=== PATIENT | male | born 1950 | race Caucasian/White ===

== ENCOUNTER 2019-03-17 12:13 | Inpatient (IN) | payer OTHER ==
[~2019-03-17] VITALS: Ht 177.8 cm; Wt 91.5 kg
[2019-03-17 12:23] VITALS: BP 118/57
[2019-03-17] MEDS ORDERED: FUROSEMIDE 20 M20 M1 PO (12:36)
[2019-03-17] MEDS ORDERED: TOPROL XL100 MG PO (12:36)
[2019-03-17] MEDS ORDERED: ZITHROMAX250 MG PO (12:38)
[2019-03-17] MEDS ORDERED: NORVASC 2.5 MG2.5 M1 PO (12:39)
[2019-03-17] MEDS ORDERED: ELIQUIS5 MG PO (12:39)
[2019-03-17] MEDS ORDERED: ZESTRIL40 MG PO (12:39)
[2019-03-17] MEDS ORDERED: METFORMIN HCL500 M3 PO (12:40)
[2019-03-17] MEDS ORDERED: ALLOPURINOL 10100 M3 PO (12:40)
[2019-03-17] MEDS ORDERED: LIPITOR80 MG PO (12:41)
[2019-03-17] MEDS ORDERED: FLONASE 0.05%50 MCG NARES (12:42)
[2019-03-17] MEDS ORDERED: FLOMAX0.4 MG PO (12:42)
[2019-03-17] MEDS ORDERED: CHILDREN'S ASPI81 M1 PO (12:43)
[2019-03-17 12:44] LABS: ABSOLUTE BASOPHILS 0.1 thou/uL (0.0-0.2); ABSOLUTE EOSINOPHILS 0.1 thou/uL (0.0-0.7); ABSOLUTE LYMPHOCYTES 1.8 thou/uL (0.8-5.3); ABSOLUTE MONOCYTES 1.1 thou/uL (0.0-1.2); ABSOLUTE NEUTROPHILS 11.2 thou/uL (1.6-8.1); BASOPHILS 0.9 %; EOSINOPHILS 0.8 %; HEMATOCRIT 34.4 % (42.0-52.0); HEMOGLOBIN 11.5 gm/dL (14.0-18.0); LYMPHOCYTES 12.3 %; MCH 30.2 pg (26.0-34.0); MCHC 33.6 g/dL (28.0-37.0); MCV 89.8 fL (80.0-100.0); MONOCYTES 7.9 %; MPV 7.2 fl. (7.2-11.1); NUCLEATED RBCS 0 /100WBC; PLATELET COUNT* 500 thou/uL (150-400); POLYS 78.1 %; RBC 3.83 mil/uL (4.50-6.00); WBC 14.4 thou/uL (4.0-11.0)
[2019-03-17] MEDS ORDERED: OMEPRAZOLE 20 M20 M1 PO (12:44)
[2019-03-17] MEDS ORDERED: NEURONTIN300 MG PO (12:44)
[2019-03-17] MEDS ORDERED: PROAIR HFA8.5 GM INH (12:45)
[2019-03-17 12:53] LABS: CALCIUM 9.3 mg/dL (8.5-10.1); CREATININE 1.2 mg/dL (0.6-1.3); POTASSIUM 3.3 mmol/L (3.5-5.1)
[2019-03-17 12:54] LABS: INR 1.1; PROTIME 11.7 Seconds (9.20-11.50)
[2019-03-17 13:04] LABS: ALBUMIN 2.6 g/dL (3.4-5.0); TOTAL BILIRUBIN 0.4 mg/dL (<0.1-1.0); TOTAL PROTEIN 6.9 g/dL (6.4-8.2)
[2019-03-17 15:33] VITALS: BP 128/74
[2019-03-17 16:30] VITALS: BP 122/49
--- NOTE | 2019-03-17 18:47 | NUR ---
I ASSUMED CARE OF THE PATIENT AN ADMISSION FROM THE ED. PATIENT FELL EARLIER TODAY AND HIT HIS HEAD. ADMISSION IS COMPLETED. BED IS IN THE LOW LOCKED POSITION AND CALL LIGHT IS IN REACH. HOURLY ROUNDING IS COMPLETED AND PTATIENT NEEDS ARE MET. PAIN IS MANAGED WITH REPOSITIONING. HIMS VISITED THE PATIENT. DRIP WAS TITRATED AND RECORDED IN THE EMAR. WILL CONTINUE TO MONITOR. HE IS UP X1 SBA AND VITALS ARE BEING MONITORED. NEW CONSULTS ARE BEING PLACED.
[2019-03-17 20:34] VITALS: BP 130/61
[2019-03-18] VITALS: BP 170/59
[2019-03-18 04:00] VITALS: BP 108/50
[2019-03-18 05:10] LABS: ABSOLUTE BASOPHILS 0.1 thou/uL (0.0-0.2); ABSOLUTE EOSINOPHILS 0.2 thou/uL (0.0-0.7); ABSOLUTE LYMPHOCYTES 1.8 thou/uL (0.8-5.3); ABSOLUTE NEUTROPHILS 6.5 thou/uL (1.6-8.1); BASOPHILS 1.3 %; EOSINOPHILS 2.4 %; HEMATOCRIT 31.8 % (42.0-52.0); HEMOGLOBIN 10.5 gm/dL (14.0-18.0); MCH 29.8 pg (26.0-34.0); MCHC 33.2 g/dL (28.0-37.0); MCV 89.8 fL (80.0-100.0); MPV 7.9 fl. (7.2-11.1); NUCLEATED RBCS 0 /100WBC; PLATELET COUNT* 452 thou/uL (150-400); POLYS 67.3 %; RBC 3.54 mil/uL (4.50-6.00); RDW-CV 13.8 % (10.5-14.5); WBC 9.6 thou/uL (4.0-11.0)
[2019-03-18 05:14] LABS: CALCIUM 9.1 mg/dL (8.5-10.1); CREATININE 1.2 mg/dL (0.6-1.3); POTASSIUM 3.4 mmol/L (3.5-5.1)
--- NOTE | 2019-03-18 05:56 | NUR ---
PT IS ABLE TO COMMUNICATE HIS NEEDS TO STAFF EFFECTIVELY. CURRENT PAIN MEDICATION REGIMEN HAS BEEN ADEQUATE FOR CONTROLLING HIS PAIN UP TO THIS TIME. HE HAS BEEN NPO SINCE MIDNIGHT FOR A CARDIOLOGY CONSULT LATER TODAY. CADIZEM GTT STOPPED DURING THE NIGHT D/T LOW HR; PT ALSO TAKING METOPROLOL PO 100MG BID CURRENTLY.
[2019-03-18 08:10] VITALS: BP 125/61
[2019-03-18 11:56] VITALS: BP 126/54
--- NOTE | 2019-03-18 12:53 | EKG ---
[place] [address] ELECTROCARDIOGRAM REPORT Name: DAREN LEVIN Room: [address] ADM IN .R.#: [id number] Admission: 03/17/19 Attend Phys: Braulio Mosher MD Discharge: Date of : 46 Report #: [id number] THIS REPORT FOR: //name// [facility] ED Test Date: 2019-03-17 Test Time: 12:27:44 Pat Name: DAREN LEVIN Department: Room: [facility] Gender: M Regulatory Assistant: MS : 1950 Requested By: Maddi Hutson Order Number: [id number] MD: Adonis Lee Measurements Intervals [place] Rate: 173 P: [place]: QRS: -42 QRSD: 94 T: 54 QT: 291 QTc: 494 Interpretive Statements Atrial fibrillation with rapid V-rate artfact noted septal q waves noted Low voltage, extremity leads ST depression, probably rate related No previous ECG available for comparison Electronically Signed On 03-18-2019 12:52:45 BORDER MACHINE OPERATOR by Adonis Lee [email or web address] <ELECTRONICALLY SIGNED> By: Adonis Lee MD, [facility] 03/18/19 3634 1227 1227 Adonis Lee MD, [facility] /EPI
--- NOTE | 2019-03-18 14:05 | NUR ---
Pt unavailable d/t testing, CM to attempt to assess later
[2019-03-18 17:01] VITALS: BP 137/59
--- NOTE | 2019-03-18 17:06 | 2DMMODE ---
[place] [address] 2 D/M-MODE ECHOCARDIOGRAM Name: DAREN LEVIN Room: [address] IN M.R.#: [id number] Admission: 03/17/19 Attend Phys: Braulio Mosher, Discharge: Date of : 46 Date of Service: 03/18/19 1706 Report #: [id number] THIS REPORT FOR: //name// APPROVED REPORT Study performed: 03/18/2019 15:02:22 EXAM: Comprehensive 2D, Doppler, and color-flow Echocardiogram Patient Location: Bedside BSA: 2.09 HR: 55 bpm BP: 108/50 mmHg Other Information Study Quality: Fair Indications Atrial Fibrillation 2D Dimensions IVSd: 15.22 (7-11mm) LVOT Diam: 21.69 (18-24mm) LVDd: 45.27 mm PWd: 11.42 (7-11mm) Ascending Ao: 36.57 (22-36mm) LVDs: 36.42 (25-40mm) Aortic Root: 32.12 mm Volumes Left Atrial Volume (Systole) LA ESV Index: 38.00 mL/m2 Aortic Valve AoV Peak Iam.: 1.10 m/s AO Peak Gr.: 4.87 mmHg LVOT Max P.74 mmHg AO Mean Gr.: 2.90 mmHg LVOT Mean P.88 mmHg LVOT Max V: 0.66 m/s AO V2 VTI: 24.50 cm LVOT Mean V: 0.44 m/s AMOR (VTI): 2.66 cm2 LVOT V1 VTI: 17.66 cm Mitral Valve E/A Ratio: 1.04 MV Decel. Time: 217.55 ms MV E Max Iam.: 0.81 m/s MV PHT: 63.09 ms MVA (PHT): 3.49 [place] [address] 2 D/M-MODE ECHOCARDIOGRAM Name: DAREN LEVIN Room: [address] IN .R.#: [id number] Admission: 03/17/19 Attend Phys: Braulio Mosher, Discharge: Date of : 46 Date of Service: 03/18/19 1706 Report #: [id number] TDI E/Lateral E': 7.36 E/Medial E': 10.13 Medial E' Iam.: 0.08 m/s Lateral E' Iam.: 0.11 m/s Pulmonary Valve PV Peak Iam.: 0.88 m/s PV Peak Gr.: 3.10 mmHg Left Ventricle The left ventricle is normal size. There is normal LV segmental wall motion. There is normal left ventricular wall thickness. Left ventricular systolic function is normal. LVEF is 50-55%. Transmitral Doppler flow pattern suggests impaired LV relaxation. Right Ventricle The right ventricle is normal size. The right ventricular systolic function is normal. Atria Left atrium is mildly dilated. The right atrium size is normal. Aortic Valve The aortic valve is normal in structure. No aortic regurgitation is present. There is no aortic valvular stenosis. Mitral Valve The mitral valve is normal in structure. Mild mitral regurgitation. No evidence of mitral valve stenosis. Tricuspid Valve The tricuspid valve is normal in structure. There is no tricuspid valve regurgitation noted. Pulmonic Valve The pulmonary valve is normal in structure. There is no pulmonic valvular regurgitation. Great Vessels The aortic root is normal in size. IVC is normal in size and collapses >50% with inspiration. Pericardium There is [place] [address] 2 D/M-MODE ECHOCARDIOGRAM Name: DAREN LEVIN Room: [address] IN [facility]#: [id number] Admission: 03/17/19 Attend Phys: Braulio Mosher, Discharge: Date of : 46 Date of Service: 03/18/19 1706 Report #: [id number] <Conclusion> Transmitral Doppler flow pattern suggests impaired LV relaxation. Left atrium is mildly dilated. Mild mitral regurgitation. IVC is normal in size and collapses >50% with inspiration. <ELECTRONICALLY SIGNED> By: Lino Yuan MD, FACC 03/18/19 1706 05 05 Lino Yuan MD, FACC /INF
[2019-03-18 20:00] VITALS: BP 143/72
[2019-03-19 00:21] VITALS: BP 91/67
[2019-03-19 04:00] VITALS: BP 148/53
[2019-03-19 05:21] LABS: CALCIUM 8.8 mg/dL (8.5-10.1); CREATININE 1.2 mg/dL (0.6-1.3); HEMATOCRIT 33.4 % (42.0-52.0); HEMOGLOBIN 10.9 gm/dL (14.0-18.0); MCH 29.5 pg (26.0-34.0); MCHC 32.6 g/dL (28.0-37.0); MCV 90.6 fL (80.0-100.0); NUCLEATED RBCS 0 /100WBC; PLATELET COUNT* 407 thou/uL (150-400); POTASSIUM 3.4 mmol/L (3.5-5.1); RBC 3.68 mil/uL (4.50-6.00); RDW-CV 14.2 % (10.5-14.5); WBC 7.7 thou/uL (4.0-11.0)
[2019-03-19 06:48] LABS: ESR (SEDRATE) 112 mm/hr (0-20)
[2019-03-19 07:10] LABS: ABSOLUTE EOSINOPHILS 0.6 thou/uL (0.0-0.7); ABSOLUTE LYMPHOCYTES 1.2 thou/uL (0.8-5.3); ABSOLUTE MONOCYTES 0.8 thou/uL (0.0-1.2); ABSOLUTE NEUTROPHILS 5.1 thou/uL (1.6-8.1); PLATELET ESTIMATE ADEQUATE
[2019-03-19 07:45] VITALS: BP 147/67
[2019-03-19 11:29] VITALS: BP 160/76
--- NOTE | 2019-03-19 12:12 | NUR ---
Pt is A&O. Resides at home with his . Independent. Pt states that he uses a cane for mobility, but also has a walker at home. No hx of HH or SNF. Goal is home at [place], no needs anticipated.
--- NOTE | 2019-03-19 13:46 | EKG ---
[place] [address] ELECTROCARDIOGRAM REPORT Name: DAREN LEVIN Room: [address] ADM IN M.R.#: [id number] Admission: 03/17/19 Attend Phys: Braulio Mosher MD Discharge: Date of : 46 Report #: [id number] THIS REPORT FOR: //name// [facility] Test Date: 2019-03-19 Test Time: 08:30:08 Pat Name: DAREN LEVIN Department: Room: [address] Gender: M Stationary Plant Operators: : 1950 Requested By: Adonis Lee Order Number: [id number] Patricia MD: Lino Yuan Measurements Intervals [place] Rate: 81 P: 42 [place]: 173 QRS: -1 QRSD: 76 T: 35 QT: 419 QTc: 487 Interpretive Statements Sinus rhythm Borderline low voltage, extremity leads Compared to ECG 03/17/2019 12:27:44 Atrial fibrillation no longer present Q waves no longer present ST (T wave) deviation no longer present Electronically Signed On 03-19-2019 13:45:47 PAYABLE PROCESSOR by Lino Yuan [email or web address] <ELECTRONICALLY SIGNED> By: Lino Yuan MD, FACC 03/19/19 1345 Lino Yuan MD, FACC /EPI
--- NOTE | 2019-03-19 13:50 | CON ---
[address] [address] CONSULTATION Name: DAREN LEVIN Room: [address] IN .R.#: [id number] Admission: 03/17/19 Attend Phys: Braulio Mosher MD Discharge: Date of : 46 Report #: [id number] THIS REPORT FOR: //name// CC: Braulio Mosher [facility] unknown DATE OF SERVICE: 03/18/2019 HISTORY OF PRESENT ILLNESS: This is a 68-year-old male patient who was seen by me for an episode of syncope. The patient said he was working on something overhead and just fell. He does not remember much about it. He did hit the back portion of his head. There was not a clear-cut postictal confusion. He did not have any tonic-clonic activity associated with this. The patient does have a history of atrial fibrillation. The patient feels back to his baseline, but he is complaining of neck pain. He drinks at least 5-6 alcoholic drinks a day, mostly beer. He usually goes to [place] for his problem. He had a similar episode 2 years ago. REVIEW OF SYSTEMS: Indicate he had a prior injury to the left knee that was also because of a fall. He has been using a walker since that time. His atrial fibrillation is being addressed by Cardiology. He also has other cardiology and peripheral vascular disease issues. He does complain of some neck pain, which was present before the fall, but has been aggravated since then. He does have a history of hyperlipidemia, syncope. He denies any new ENT problem, but he does have atrial fibrillation. He does have a history of COPD. He denied any GI, , constitutional, dermatological, hematological, psychiatric, throat, allergic symptom associated with present symptomatology. PAST MEDICAL HISTORY: Positive for similar episode about 2 years ago. FAMILY HISTORY: Unremarkable. SOCIAL HISTORY: He does not smoke. He has smoked in the past. PHYSICAL EXAMINATION: Indicate that the patient is alert and responsive. He can follow simple commands. His memory looks poor, but appeared to be his baseline. His speech is intact. His cranial nerve examination 2-12 looks unremarkable. He does appear to have some generalized weakness. He walks with a walker that is because of the knee injury. He said he cannot appreciate the position sense or pinprick in the lower extremities symmetrically. He said he has been diagnosed with neuropathy about a year ago. I am not sure how the diagnosis was done. His tone and strength looks symmetrical. He has no cerebellar sign. Fundus looks unremarkable. Cardiac examination indicates he has a history of atrial fibrillation. Respiratory examination indicates he has COPD. His pulses to me appear palpable. He has no edema, cyanosis or jaundice. He is well-built individual. He has no thyroid mass[place] [address] CONSULTATION Name: DAREN LEVIN Room: [address] IN [facility]#: [id number] Admission: 03/17/19 Attend Phys: Braulio Mosher MD Discharge: Date of : 46 Report #: [id number] bruit. Blood pressure 108/50, pulse is 55, temperature is 98.1. LABORATORY DATA: Indicate a hemoglobin of 10.5, platelet count of 452. IMPRESSION: 1. Syncope. This is most likely secondary to his cardiac etiology. It will be desirable to rule out ORAL AND MAXILLOFACIAL SURGEON causes and we will schedule an MRI and an EEG for that. The patient drinks significant amount of alcohol and he must stop drinking alcohol. He knows that, but I am not sure how willing he is to do that. 2. He does not appear to have good position sense, but the reflexes are present. He is complaining of neck pain, because of that the possibility of cervical myelopathy need to be excluded. We may exclude thoracic myelopathy depending upon the cervical spine MRI results. 3. Neuropathy is most likely secondary to his diabetes and his significant alcohol intake, but I think we will exclude any other contributing factor. He is already getting multivitamin and thiamine and that can continue. His further management and his driving restrictions need to be decided after the above workup is available. I will schedule the workup and ask Dr. Barry to follow up tomorrow. <ELECTRONICALLY SIGNED> By: Ko Bellamy MD 03/19/19 1350 1027 [id number] Bellamy MD /nt
--- NOTE | 2019-03-19 13:50 | EEG ---
[address] [address] EEG STUDY REPORT Name: LEVINDAREN J Room: [address] IN .R.#: [id number] Admission: 03/17/19 Attend Phys: Braulio Mosher MD Discharge: Date of : 46 Report #: [id number] THIS REPORT FOR: //name// CC: Braulio Mosher [facility] unknown DATE OF SERVICE: 03/18/2019 This patient is being evaluated for an episode of syncope. EEG was done by placing the electrode by standard 10-20 system of electrode placement. Both referential and sequential montages were used for recording. Background activity in this patient's EEG is about 11 Hz and 40 microvolts. The patient became drowsy and that is associated with bilateral slowing and vertex sharp waves. Photic stimulation is unremarkable. Throughout the record, no active epileptiform activity was noticed. IMPRESSION: This patient's EEG is unremarkable. No active epileptiform activity was noticed during this record. <ELECTRONICALLY SIGNED> By: Ko Bellamy MD 03/19/19 1350 1051 1100Ko Bellamy MD /nt
--- NOTE | 2019-03-19 13:56 | CON ---
[address] [address] CONSULTATION Name: DAREN LEVIN Room: [address] IN M.R.#: [id number] Admission: 03/17/19 Attend Phys: Braulio Mosher MD Discharge: Date of : 46 Report #: [id number] THIS REPORT FOR: //name// CC: Braulio Mosher [facility] unknown DATE OF SERVICE: 03/18/2019 CARDIOLOGY CONSULTATION HISTORY OF PRESENT ILLNESS: The patient is a 68-year-old white male who I was asked to see in the hospital today after he was noted to be in atrial fibrillation. The patient has an extensive and complicated past medical history. Unfortunately, most of his old records are not available here at [facility]. He states that 2 years ago, he was found to be in atrial fibrillation. He was seen at the [facility] and placed on Eliquis. He has had no bleeding problems since that time. Apparently on 02/27/2019, he tripped and fell at home. He injured his left knee. He went to urgent care at [facility]. He was placed on a boot and told to use a walker. He is scheduled to see an orthopedic surgeon. He is not very active at this time. Yesterday, he was at home in the bathroom when he suddenly felt lightheaded and fell to the ground. He apparently had a brief loss of consciousness. He denies any palpitations, seizure activity. His brought him to the Emergency Room yesterday. He was found to be in atrial fibrillation with rapid ventricular response rate. He was placed on IV Cardizem. He apparently had a CT scan of the head when was admitted to a monitored bed. He had no bleeding. He did not require stitches. The Cardizem was turned off after he developed bradycardia. I was asked to see him for further evaluation and treatment. He has had a previous history of syncope years ago. He denied any recent vomiting, bleeding, diarrhea. He denies being dehydrated. He does get short of breath when he exerts himself. PAST MEDICAL HISTORY: Otherwise, he apparently had a history of leg pain and was found to have PAD[facility] [place] [facility] st[facility] placed in his aorta and both legs. He no longer has leg pain. CURRENT MEDICATIONS: Consists of Lasix, metoprolol, amlodipine, lisinopril, Eliquis, metformin, allopurinol, Lipitor, Flomax, aspirin, Neurontin, and omeprazole. He is on albuterol inhaler. ALLERGIES: He has no known drug allergies. FAMILY HISTORY: Negative for heart disease. 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 He quit smoking years ago. He has a history of alcohol abuse, went to years ago, but still drinks 8-10 [place] [address] CONSULTATION Name: DAREN LEVIN Room: [address] IN [facility]#: [id number] Admission: 03/17/19 Attend Phys: Braulio Mosher MD Discharge: Date of : 46 Report #: [id number] REVIEW OF SYSTEMS: He has had no history of stroke. He has asthma and uses a nebulizer. No history of liver disease, kidney disease, cancer or psychiatric illness, chronic skin condition. No psychiatric illness. PHYSICAL EXAMINATION: GENERAL: Revealed an elderly male, lying in bed, appeared in no acute distress. VITAL SIGNS: Blood pressure is 110/60, his pulse was 60. He is afebrile. HEENT: He was anicteric. Conjunctivae pink. Mucous membranes moist. NECK: Veins nondistended. Bilateral carotid bruits were heard. CHEST: Clear to auscultation. CARDIOVASCULAR: Regular rate and rhythm. No significant murmur. ABDOMEN: Soft. EXTREMITIES: Had no edema. Dorsalis pedis pulse cannot be palpated. SKIN: Cool and dry. NEUROLOGIC: Nonfocal. DIAGNOSTIC DATA: His ECG on admission yesterday showed atrial fibrillation with an increased ventricular response rate, septal Q-waves were noted. He currently is in a sinus rhythm. He has workup in the Emergency Room yesterday. He had a CT scan of the head after he fell that showed no acute abnormality. Portable chest x-ray showed normal heart size, clear lung lorenz. There was a CT scan of the lungs using a PE protocol that showed no pulmonary embolus. No infiltrates, small nodule noted. There was evidence of coronary artery disease with coronary calcification and hyperinflated lung lorenz. LABORATORY DATA: Potassium 3.4, creatinine 1.2. His troponin 0.06. BNP 1144. His alcohol level less than 10. White blood cell count 9.6, hemoglobin 11.5, hematocrit 34.4. IMPRESSION AND RECOMMENDATIONS: 1. Paroxysmal atrial fibrillation. The patient has been on Eliquis for 2 years. At this time, I would consider antiarrhythmic therapy. I would recommend starting the patient on sotalol in an effort to maintain sinus rhythm. I would check thyroid function studies and echocardiogram. 2. Peripheral arterial disease. Previous bilateral stents. No symptoms of claudication at this time. 3. Recent syncope. Possibly related to rapid atrial fibrillation. 4. Chronic obstructive pulmonary disease. The patient uses on bronchodilator. 5. Previous tobacco abuse. 6. Diabetes. 7. Hyperlipidemia. The patient is on a statin drug. 8. Recent fall with left knee discomfort. The patient uses a brace this time. 9. [place] [address] CONSULTATION Name: DAREN LEVIN Room: [address] IN ..#: [id number] Admission: 03/17/19 Attend Phys: Braulio Mosher MD Discharge: Date of : 46 Report #: [id number] 10. Hypertension. The patient is on a beta-danae, calcium danae, NARESH inhibitor. <ELECTRONICALLY SIGNED> By: Adonis Lee MD, FACC 03/19/19 1356 0922 [id number] Lee MD, FACC /nt
[2019-03-19 16:11] LABS: IgA 389 mg/dL (61-437); IgG 868 mg/dL (700-1600); IgM 95 mg/dL (20-172)
[2019-03-19 17:05] VITALS: BP 156/78
[2019-03-19 22:00] VITALS: BP 149/68
[2019-03-20] VITALS (7 sets, daily range): BP systolic 149–167; BP diastolic 61–98
[2019-03-20] MEDS ORDERED: SORINE 80 MG TA80 MG PO (10:14)
[2019-03-20] MEDS ORDERED: AUGMENTIN 875-1 EACH PO (10:43)
--- NOTE | 2019-03-20 11:52 | EKG ---
[place] [address] ELECTROCARDIOGRAM REPORT Name: DAREN LEVIN Room: [address] ADM IN M.R.#: [id number] Admission: 03/17/19 Attend Phys: Braulio Mosher MD Discharge: Date of : 46 Report #: [id number] THIS REPORT FOR: //name// [facility] Test Date: 2019-03-20 Test Time: 09:30:21 Pat Name: DAREN LEVIN Department: Room: [address] Gender: M Internal Medicine Veterinary Technician: JL : 1950 Requested By: Adonis Lee Order Number: [id number] Patricia MD: Scottie Luis Measurements Intervals [place] Rate: 74 P: 30 SC: 189 QRS: -9 QRSD: 77 T: 42 QT: 461 QTc: 512 Interpretive Statements Sinus rhythm Anterior infarct, old possible Mildly Prolonged QT interval Compared to ECG 03/19/2019 08:30:08 Myocardial infarct finding now present Prolonged QT interval now present Electronically Signed On 03-20-2019 11:52:09 TELEPRINTER INSTALLER by Scottie Luis [email or web address] <ELECTRONICALLY SIGNED> By: Scottie Luis MD, [facility] 03/20/19 1152 9 Scottie Luis MD, [facility] /EPI
[2019-03-22 12:09] LABS: ANA INTERPRETATION Negative (Negative)
== END 2019-03-20 13:10 | disposition home or self-care (01) | DRG 871 ==
LOC: M.ERS 12:13 → M.2W 14:24 → M.TBA-ER 14:24 → M.2W 15:42
PROVIDERS: Personal Emergency Response Attendant; Psychiatry & Neurology Neuromuscular Medicine; ADMIT Internal Medicine
DX: A41.9 Sepsis, unspecified organism (principal); J15.6 Pneumonia due to other Gram-negative bacteria; J44.0 Chronic obstructive pulmonary disease with (acute) lower respiratory infection; I48.0 Paroxysmal atrial fibrillation; E78.5 Hyperlipidemia, unspecified; I10 Essential (primary) hypertension; E11.40 Type 2 diabetes mellitus with diabetic neuropathy, unspecified; F10.20 Alcohol dependence, uncomplicated; E11.51 Type 2 diabetes mellitus with diabetic peripheral angiopathy without gangrene; R91.1 Solitary pulmonary nodule; Z95.820 Peripheral vascular angioplasty status with implants and grafts; Z87.81 Personal history of (healed) traumatic fracture; Z79.82 Long term (current) use of aspirin; Z79.899 Other long term (current) drug therapy

== ENCOUNTER 2019-07-27 14:10 | Inpatient (IN) | payer MEDICARE, OTHER ==
[~2019-07-27] VITALS: Ht 175.3 cm; Wt 95.2 kg
[~2019-07-27 14:10] MED LIST: ALLOPURINOL 10100 M3 PO; AUGMENTIN 875-1 EACH PO; CHILDREN'S ASPI81 M1 PO; ELIQUIS5 MG PO; FLOMAX0.4 MG PO; FLONASE 0.05%50 MCG NARES; FUROSEMIDE 20 M20 M1 PO; LIPITOR80 MG PO; METFORMIN HCL500 M3 PO; NEURONTIN300 MG PO; NORVASC 2.5 MG2.5 M1 PO; OMEPRAZOLE 20 M20 M1 PO; PROAIR HFA8.5 GM INH; SORINE 80 MG TA80 MG PO; TOPROL XL100 MG PO; ZESTRIL40 MG PO; ZITHROMAX250 MG PO
[2019-07-27 14:25] VITALS: BP 156/73
[2019-07-27] MEDS ORDERED: LIPITOR10 MG PO (14:40)
--- NOTE | 2019-07-27 16:25 | NUR ---
ANDERSON WORKMAN ) NOTIFIED UPON PT RETURN FROM CT. PT CONNECTED TO MONITOR
[2019-07-27 17:20] LABS: ABSOLUTE BASOPHILS 0.1 thou/uL (0.0-0.2); ABSOLUTE EOSINOPHILS 0.2 thou/uL (0.0-0.7); ABSOLUTE LYMPHOCYTES 1.5 thou/uL (0.8-5.3); ABSOLUTE MONOCYTES 0.8 thou/uL (0.0-1.2); ABSOLUTE NEUTROPHILS 7.7 thou/uL (1.6-8.1); BASOPHILS 0.7 %; EOSINOPHILS 1.8 %; HEMATOCRIT 34.2 % (42.0-52.0); HEMOGLOBIN 11.6 gm/dL (14.0-18.0); LYMPHOCYTES 14.5 %; MCH 30.8 pg (26.0-34.0); MCHC 33.9 g/dL (28.0-37.0); MCV 90.8 fL (80.0-100.0); MONOCYTES 7.5 %; MPV 7.6 fl. (7.2-11.1); NUCLEATED RBCS 0 /100WBC; PLATELET COUNT* 272 thou/uL (150-400); POLYS 75.5 %; RBC 3.77 mil/uL (4.50-6.00); RDW-CV 16.3 % (10.5-14.5); WBC 10.2 thou/uL (4.0-11.0)
[2019-07-27 17:26] LABS: URINE BILIRUBIN NEGATIVE (Negative); URINE BLOOD TRACE (Negative); URINE CLARITY CLEAR; URINE COLOR YELLOW; URINE GLUCOSE-RANDOM NEGATIVE (Negative); URINE KETONES NEGATIVE (Negative); URINE LEUKOCYTES-REFLEX NEGATIVE (Negative); URINE NITRITE-REFLEX NEGATIVE (Negative); URINE PROTEIN 1+ (Negative); URINE UROBILINOGEN 0.2 E.U./dl (0.2-1.0)
[2019-07-27 17:28] LABS: CALCIUM 9.1 mg/dL (8.5-10.1); POTASSIUM 4.6 mmol/L (3.5-5.1)
[2019-07-27 17:29] LABS: APTT 33.8 Seconds (25.0-31.3); INR 1.1; PROTIME 10.9 Seconds (9.20-11.50)
[2019-07-27 17:39] LABS: ALBUMIN 3.2 g/dL (3.4-5.0); TOTAL BILIRUBIN 0.4 mg/dL (<0.1-1.0); TOTAL PROTEIN 7.3 g/dL (6.4-8.2)
[2019-07-27 22:00] VITALS: BP 145/68
[2019-07-27 22:30] VITALS: BP 161/68
[2019-07-28 04:00] VITALS: BP 107/67
[2019-07-28 04:21] LABS: ABSOLUTE BASOPHILS 0.1 thou/uL (0.0-0.2); ABSOLUTE EOSINOPHILS 0.3 thou/uL (0.0-0.7); ABSOLUTE LYMPHOCYTES 1.4 thou/uL (0.8-5.3); ABSOLUTE MONOCYTES 0.9 thou/uL (0.0-1.2); ABSOLUTE NEUTROPHILS 3.9 thou/uL (1.6-8.1); EOSINOPHILS 4.2 %; HEMOGLOBIN 9.9 gm/dL (14.0-18.0); LYMPHOCYTES 21.3 %; MCH 31.1 pg (26.0-34.0); MCHC 34.2 g/dL (28.0-37.0); MCV 90.8 fL (80.0-100.0); MONOCYTES 13.1 %; MPV 6.9 fl. (7.2-11.1); NUCLEATED RBCS 0 /100WBC; PLATELET COUNT* 217 thou/uL (150-400); POLYS 60.4 %; RBC 3.19 mil/uL (4.50-6.00); WBC 6.5 thou/uL (4.0-11.0)
--- NOTE | 2019-07-28 04:30 | NUR ---
RECEIVED PT FROM ED PER CART. PT IS AWAKE AND ORIENTED X4. PT IS TRACING SR ON THE PILOT CAN ROUTER. ADMISSION ASSESSMENT DONE AND CHARTED. LEFT LOWER EXTREMEITY IMMOBILIZER MAINTAINED. ALCOHOL WITHDRAWAL ASSESSMENT DONE CHARTED. PT IS ORIENTED TO ROOM SET UP AND ON THE USE OF CALL LIGHT. HIGH FALL PRECAUTIONS IN PLACE. CALL LIGHT WITHIN REACH. HOURLY ROUNDING DONE FOR PT SAFETY.
[2019-07-28 04:34] LABS: CALCIUM 7.9 mg/dL (8.5-10.1)
[2019-07-28 04:36] LABS: CALCIUM 8.1 mg/dL (8.5-10.1); MAGNESIUM 1.6 mg/dL (1.8-2.4); PHOSPHORUS* 4.1 mg/dL (2.5-4.9)
[2019-07-28 06:31] LABS: AMP/METHAMP Negative (Negative); BARBITURATES Negative (Negative); BENZODIAZEPINES Negative (Negative); COCAINE Negative (Negative); METHADONE Negative (Negative); OPIATES POSITIVE (Negative); PCP Negative (Negative); THC Negative (Negative)
[2019-07-28 08:00] VITALS: BP 139/60
--- NOTE | 2019-07-28 08:31 | EKG ---
[place] [address] ELECTROCARDIOGRAM REPORT Name: DAREN LEVIN Room: [address] ADM IN ..#: [id number] Admission: 07/27/19 Attend Phys: Braulio Mosher, Discharge: Date of : 46 Date of Service: 07/27/19 1705 Report #: [id number] THIS REPORT FOR: //name// [facility] ED Test Date: 2019-07-27 Test Time: 17:05:24 Pat Name: DAREN LEVIN Department: Room: [facility] Gender: M Foundation Engineer: : 1950 Requested By: Gio Murcia Order Number: [id number] MD: Lino Yuan Measurements Intervals [place] Rate: 89 P: 3 [place]: 176 QRS: -17 QRSD: 73 T: 51 QT: 365 QTc: 445 Interpretive Statements Sinus rhythm Borderline left axis deviation Low voltage, precordial leads Baseline wander in lead(s) I,II,aVR Compared to ECG 03/20/2019 09:30:21 Low QRS voltage now present Myocardial infarct finding no longer present Prolonged QT interval no longer present Electronically Signed On 07-28-2019 8:29:31 CDT by Lino Yuan [email or web address] <ELECTRONICALLY SIGNED> By: Lino Yuan MD, [facility] 07/28/19 0829 04 170 Lino Yuan MD, [facility] /EPI
[2019-07-28 12:00] VITALS: BP 123/59
--- NOTE | 2019-07-28 15:36 | NUR ---
Pt is A&O. Resides at home with his . Normally independent. Pt has a cane and walker that he can use for mobility. Hx of ETOH, resulting in tibial plataeu fx. Pt wants to return home at [place], no hx of HH or SNF. Therapies to eval. Following
[2019-07-28 16:00] VITALS: BP 133/70
--- NOTE | 2019-07-28 18:38 | NUR ---
ASSUMED CARE OF PT APPROX 0730. REASSESMENT COMPLETED CHARTED. MEDICATIONS GIVEN CHARTED. PT NOTED TO HAVE SLIGHT TREMORS. CARE DISCUSSED WITH THE PHYSICIAN. THERAPY IN TO SEE THE PT THIS AM, THERAPY DID NOT BELIEVE THE PT WAS STRONG ENOUGH TO GO HOME TODAY. PHYSICIAN NOTIFIED. PT HAS BEEN SLEEPING FOR MOST OF THE SHIFT. SAFETY PRECAUTIONS UTILIZED, HOURLY ROUNDING. BED IN LOW POSITION AND CALL LIGHT WITHIN REACH.
[2019-07-28 20:00] VITALS: BP 122/71
[2019-07-29] VITALS (7 sets, daily range): BP systolic 137–178; BP diastolic 61–83
[2019-07-29 04:56] LABS: CALCIUM 8.4 mg/dL (8.5-10.1); CREATININE 0.9 mg/dL (0.6-1.3); MAGNESIUM 1.5 mg/dL (1.8-2.4); PHOSPHORUS* 4.6 mg/dL (2.5-4.9)
--- NOTE | 2019-07-29 06:48 | NUR ---
ASSUMED PT CARE AT APPROX 1930. PT IS AWAKE AND ORIENTED X4-FORGETFUL. ELECTRONIC DEVICE REPAIRER IN PLACE TRACING SR. PT SLEPT MOST OF THE NIGHT. ALCOHOL WITHDRAWAL ASSESSMENT DONE AND CHARTED. CALL LIGHT WITHIN REACH. LEFT LEG BRACE KEPT IN PLACE. HOURLY ROUNDING DONE FOR PT SAFETY. HIGH FALL PRECAUTIONS IN PLACE. CALL LIGHT WITHIN REACH.
--- NOTE | 2019-07-29 09:19 | NUR ---
ASSUMED CARE OF PT THIS AM AROUND 0715- RETINA SUBSPECIALIST IN PLACE ORDERED, TRACING SR- UPON ASSESSMENT PT NOTED TO BE RESTING IN BED, WATCHING TV- PT A&O X4- MILD ANXIUOS THIS AM WITH NOTED TREMORS IN UE- CIWA NOTED AT 4- CONT OF B/B- SBA WITH TRANSFERS FOR SAFETY- LCTA/DIMINISHED IN BASES- VSS, O2 SAT 97%ON RA- ABD FORM/ROUND/NON-TENDER, BS X4 QUADS- LAST BM REPORTED 07/28/19- IV NOTED TO LEFT FA INTACT, IVF INFUSSING PRESCRIBED- GOOD PO INTAKE NOTED THIS AM WITH BREAKFAST, BS MONITORED ORDERED- LLE NOTED WITH 2+ PEDAL EDEMA, PULSES +1, LEG BRACE IN WITH WITH NARESH WRAP INDICATED- PT DENIES ANY C/O PAIN/DISCOMFORT AT THIS TIME- CALL LIGHT AND PERSONAL BELONGINGS WITH IN REACH- ALL NEEDS MET AT THIS TIME-WCTM
[2019-07-29] MEDS ORDERED: NORCO 5-325 TA1 EAC1 PO (12:04)
[2019-07-30] VITALS (7 sets, daily range): BP systolic 127–157; BP diastolic 60–92
--- NOTE | 2019-07-30 06:19 | NUR ---
PT SLEPT OFF AND ON THIS SHIFT. VSS ON RA. MEDS GIVEN PER EMAR. NWB TO LLE. WBAT TO RLE. PT DENIES PAIN THIS SHIFT. PT VOIDS VIA URINALS. NO BM NOTED THIS SHIFT. FALL PRECAUTION IN PLACE. CALL LIGHT WITHIN REACH. HOURLY ROUNDINGS MADE. WILL CONTINUE TO MONITOR.
--- NOTE | 2019-07-30 08:26 | NUR ---
CM received call from Pt's yesterday, have been unable to reach, CM to keep attempting to make contact. Pt will need either skilled or acute rehab [place] per therapies.
--- NOTE | 2019-07-30 13:03 | NUR ---
CM spoke with via phone. concerned that Pt will not agree to go to acute rehab, asking if Pt can have non alcoholic beer on rehab, he may agree to going if he can. MARLON explained that as of now, Pt is dependent with cares and will need some form of rehab prior to returning home. Per , if PT clears Pt, he can return home with HH, in agreement with either plan as long as Pt agrees. Following.
[2019-07-31 04:00] VITALS: BP 146/57
--- NOTE | 2019-07-31 06:04 | NUR ---
PT SLEPT OFF AND ON THIS SHIFT. PAIN MED GIVEN X1 THIS SHIFT. PT VOIDS VIA URINALS. RFA IV WITH NS @ 100. FALL PRECAUTION IN PLACE. CALL LIGHT WITHIN REACH. WILL CONTINUE TO MONITOR.
[2019-07-31 07:43] VITALS: BP 176/73
[2019-07-31 12:00] VITALS: BP 141/65
[2019-07-31 16:00] VITALS: BP 121/58
--- NOTE | 2019-07-31 19:02 | NUR ---
RECEIVED REPORT FROM BENJAMIN ANDERSON. ASSUMED CARE OF PT AROUND 0730. PT A&O X4. CLIMATOLOGIST IN PLACE TRACING CHARTED. AM ASSESSMENT AND VITALS COMPLETED CHARTED. MEDS PER EMAR. PT ABLE TO GET UP TO BEDSIDE CHAIR THIS SHIFT, NWB STATUS TO LLE MAINTAINED. PT VOIDING PER URINAL, URINE YELLOW. PT REPORTED PAIN TO LLE AFTER GETTING UP TO CHAIR AND RECEIVED PO PAIN MEDICATION WITH RELIEF. PLAN IS FOR PT TO DC TO REHAB FRIDAY PROVIDED A BED IS AVALIABLE. PT CURRENTLY RESTING IN BED. CALL LIGHT IS WTHIN REACH. HOURLY ROUNDING PERFORMED. FALL PRECAUTIONS IN PLACE.
[2019-07-31 20:00] VITALS: BP 141/61
[2019-08-01 00:04] VITALS: BP 155/64
--- NOTE | 2019-08-01 03:20 | NUR ---
PT ALERT ORIENTED. IN BED WITH LEFT LEG HINGED BRACE. CO PAIN AROUND MN SHOOTING, SHARP IN LEFT ANKLE AND FOOT. HYDROCODONE GIVEN. PT RESTING QUIETLY. TELEMETRY SHOWS SR. JAYDEN
[2019-08-01 04:30] VITALS: BP 155/63
[2019-08-01 08:00] VITALS: BP 167/72
[2019-08-01 14:00] VITALS: BP 115/64
[2019-08-01 16:00] VITALS: BP 147/56
--- NOTE | 2019-08-01 17:49 | NUR ---
PATINET RESTING IN BED. SR ON MONITOR. NWB TO LEFT LEG. EXPECTED DISCHARGE TO REHAB TOMORROW. HOURLY ROUNDING COMPELTED FOR PATINET SAFETY.
[2019-08-01 20:00] VITALS: BP 147/69
[2019-08-02] VITALS: BP 154/64
[2019-08-02 04:00] VITALS: BP 154/71
--- NOTE | 2019-08-02 04:49 | NUR ---
ASSUMED CARE OF PT AFTER REPORT AT 1930. PT A&OX4. VSS. PHYSICAL ASSESSMENT COMPLETED AND CHARTED. PT ON RA. PT TRACING SR ON TELE. PT UP WITH 1 ASSIST. PT COMPLAINED OF LEFT LEG/KNEE PAIN-MED GIVEN PER MAY. NWB TO LEFT LEG REMINDED. CALL LIGHT WITHIN REACH.
[2019-08-02 08:49] VITALS: BP 157/51
[2019-08-02 12:11] VITALS: BP 142/59
--- NOTE | 2019-08-02 15:11 | NUR ---
Rehab consult completed today, Pt is a good rehab candidate. Waiting to hear back from rehab department manager on bed availability for dc today. Following.
[2019-08-02 16:52] VITALS: BP 161/67
[2019-08-02 20:53] VITALS: BP 152/55
[2019-08-03] VITALS (7 sets, daily range): BP systolic 135–178; BP diastolic 61–83
--- NOTE | 2019-08-03 04:18 | NUR ---
ASSUMED CARE OF PT 08/02/19 AT APPROX 1930. PT A&OX4, ON ROOM AIR, VSS, NWB LT LEG MAINTAINED. PT SR ON MONITOR. ASSESSMENTS AND HOURLY ROUNDINGS COMPLETED. WILL CONTINUE TO MONITOR.
--- NOTE | 2019-08-03 12:55 | NUR ---
ASSUMED PT CARE REPORT RECEIVED FROM NURSE. PT IS AOX4. ON RA, TRACING SINUS RYTHM ON BAR BACK. ON RA. DENIES PAIN. PT RECEIVED SHOWER THIS AM. LEFT KNEE BRACE IN PLACE. NON WEIGHT BEARING OF LEFT LOWER EXT. ACCUCHECK. DISCHARGE ORDERED. CALL LIGHT AT REACH. WILL CONTINUE TO MONITOR PT
--- NOTE | 2019-08-03 18:39 | NUR ---
PT WAS SUPPOSED TO GET DISCHARGED TO REHAB TODAY BUT NO BED AVAILABLE. STOP TELEMETRY ORDER IN. HEART MONITOR RETRIEVED. IV REMOVED . "OK TO REMOVE IV ORDER " IN PLACE
--- NOTE | 2019-08-03 19:22 | NUR ---
BLACK LEFT GREAT TOE ULCER NOTICED. WOUND CARE CONSULTED. PICTURE IN CHART
[2019-08-04] VITALS: BP 137/60
--- NOTE | 2019-08-04 07:26 | NUR ---
PT IS ABLE TO COMMUNICATE HIS NEEDS TO STAFF EFFECTIVELY. CURRENT PAIN MEDICATION REGIMEN HAS BEEN ADEQUATE FOR CONTROLLING HIS PAIN UP TO THIS TIME. PT IS TO BE NON-WEIGHT BEARING ON HIS LEFT LEG DUE TO THE TIBIAL PLATEAU FX ON THAT SIDE; BRACE ON FOR GAIT/TRANSFERS, MAY BE REMOVED WHILE STAYING IN BED. POSSIBLE DISCHARGE AND READMIT TO [facility] LATER TODAY.
[2019-08-04 08:00] VITALS: BP 136/72
--- NOTE | 2019-08-04 14:00 | NUR ---
ASSUMED PT CARE REPORT RECEIVED FROM NURSE. PT IS NONWEIGHT BEARING OF LEFT LOWER EXTREMITIY. VSS. THIS NURSE CONTACTED ASSISTANT KITCHEN MANAGER THIS MORNING TO INQUIRE ABOUT THE AVAILABILITY OF BED FOR PATIENT. PER REHAB MANGER, THERE WILL BE A DISCHARGE LATER IN THE DAY AND THE PATIENT SHOULD BE ABLE TO GET ADMITTED BY THE END OF THE DAY. PT HAD A BOWEL MOVEMENT. COMPLAINS OF PAIN. MEDS GIVEN. OUT OF BED, WALKED WITH PHYSICAL THERAPY. CALL LIGHT AT REACH. NO COMPLAINT. WILL CONTINUE TO MONITOR
--- NOTE | 2019-08-04 15:45 | NUR ---
PER PHYSICAL THERAPIST THIS AM, PATIENT WILL NEED REHAB BECAUSE PATIENT IS WEAK ON HIS LEGS AND NEED MORE STRENGTH TRAINING
[2019-08-04 16:00] VITALS: BP 127/57
--- NOTE | 2019-08-04 18:38 | NUR ---
REPORT GIVEN TO REHAB NURSE . PT IS TO GO TO ROOM 318. PT TRANSFERRED TO REHAB AT 1830 VIA WHEELCHAIR. CORNELIO BROUGHT ALONG
== END 2019-08-04 18:57 | DRG 543 ==
LOC: M.ERS 14:10 → M.2W 17:25 → M.TBA-ER 17:25 → M.2W 22:02
PROVIDERS: Family Medicine; Physician Assistant; ADMIT Internal Medicine
PROC: 2W3MX3Z Immobilization of Left Lower Extremity using Brace (ICD-10-PCS; principal; 2019-07-28)
DX: M80.062A Age-related osteoporosis with current pathological fracture, left lower leg, initial encounter for fracture (principal); E87.1 Hypo-osmolality and hyponatremia; I50.32 Chronic diastolic (congestive) heart failure; I43 Cardiomyopathy in diseases classified elsewhere; S00.03XA Contusion of scalp, initial encounter; M25.561 Pain in right knee; F10.20 Alcohol dependence, uncomplicated; Y90.9 Presence of alcohol in blood, level not specified; G62.9 Polyneuropathy, unspecified; X58.XXXA Exposure to other specified factors, initial encounter; E78.5 Hyperlipidemia, unspecified; I48.91 Unspecified atrial fibrillation; J44.9 Chronic obstructive pulmonary disease, unspecified; Y93.89 Activity, other specified; Y92.89 Other specified places as the place of occurrence of the external cause; Y99.8 Other external cause status; Z79.01 Long term (current) use of anticoagulants; Z79.82 Long term (current) use of aspirin; Z79.899 Other long term (current) drug therapy

== ENCOUNTER 2019-08-03 09:57 | Inpatient (IN) | payer MEDICARE, OTHER ==
[~2019-08-03] VITALS: Ht 175.3 cm; Wt 92.1 kg
[~2019-08-03 09:57] MED LIST changes: +LIPITOR10 MG PO; +NORCO 5-325 TA1 EAC1 PO
[2019-08-04 18:56] VITALS: BP 137/59
--- NOTE | 2019-08-05 01:32 | NUR ---
PATIENT CAME TO FLOOR PER W/C @ 1844.ADMITTED A 68 YEAR OLD MALE DUE TO FX LEFT TIBIAL PLATEAU.NWB LEFT LE.BRACE LEFT LE OFF @ 1944.ASSUMED CARE @ 1944.AWAKE IN BED W/ HOB UP WATCHING TV.WANTS SIDERAILS X2 UP ONLY.BED ALARM PUT ON @ 1924.PER PATIENT-BRACE CAN BE OFF WHILE IN BED PER W/IN REACH.WAnts scd's on & APPLIED BY LINE COOK @ 223.SEE PAIN MANAGEMENT @ 2256.WANTS ALL LIGHTS OFF & DOOR CLOSED @ NIGHT.ON HOURLY ROUNDS.LINE COOK DOING ODD HOUR ROUNDS.
--- NOTE | 2019-08-05 05:07 | NUR ---
SLEPT LATE @ 0000-08/04- & SLEEPING GOOD ALL NIGHT.USED URINAL X3.NURSE JUST EMPTIES URINAL @ NIGHT.TOOK ALL VANILLA ICE CREAM HS SNACK.
[2019-08-05 08:00] VITALS: BP 146/58
[2019-08-05 10:45] LABS: HEMATOCRIT 30.6 % (42.0-52.0); HEMOGLOBIN 10.3 gm/dL (14.0-18.0); MCH 30.8 pg (26.0-34.0); MCHC 33.6 g/dL (28.0-37.0); MCV 91.8 fL (80.0-100.0); MPV 7.7 fl. (7.2-11.1); RBC 3.33 mil/uL (4.50-6.00); RDW-CV 15.5 % (10.5-14.5); WBC 6.1 thou/uL (4.0-11.0)
[2019-08-05 10:57] LABS: CALCIUM 8.9 mg/dL (8.5-10.1); CREATININE 1.2 mg/dL (0.6-1.3); POTASSIUM 3.5 mmol/L (3.5-5.1)
--- NOTE | 2019-08-05 16:50 | NUR ---
WOUND NURSE: PATIENT FITTED FOR TUBIGRIPS BLE AFTER MEASURING CALF'S AT 39 AND 41 CM RESPECTIVELY. PROVIED WITH SINGLE LAYER SIZE E TUBIGRIPS TO BLE TOES TO KNEE.
--- NOTE | 2019-08-05 17:57 | NUR ---
ASSESSMENT COMPLETED DOCUMENTED THIS MORNING. PATIENT QUITE IRRITABLE AND STATING HE IS GOING TO LEAVE HERE TODAY EVEN IF IT IS AMA. DR. PETERS IN AND SPOKE WITH PATIENT, PATIENT AGREED TO PARTICIPATE WITH THERAPY AND SERVICES ON REHAB FOR A FEW DAYS. ORDERS FOR NONALCOHOLIC BEER AT THE BEDSIDE REC'D AND PATIENT HAS THEM ON ICE NEXT TO HIS RECLINER. ALBUTEROL TREATMENTS ORDERED TID AND PRN...PATIENT STATED HE HAD THEM ON THE OTHER UNIT AND NEEDED THEM. HYDROCODONE 5/325 GIVEN AT 0830 FOR C/O LLE PAIN WITH RELIEF OBTAINED. PATIENT DID PARTICIPATE FULLY WITH THERAPY THE DAY PROGRESSED.
[2019-08-05 19:40] VITALS: BP 143/62
--- NOTE | 2019-08-06 05:39 | NUR ---
ASSUMED CARES AT 1920. ALERT AND ORIENTED. PLEASANT. DENIED ANY NEED FOR PAIN MEDS. NWB LLE. HINGED BRACE OFF WHEN IN BED. TUBIGRIPS TO BLE 2-3+ EDEMA. MIN ASSIST WITH GAIT BELT AND WALKER. STAND AND PIVOT. USED URINAL. SLEPT WELL. NO ISSUES OVERNIGHT. CALL LIGHT IN REACH AND BED ALARM ON.
[2019-08-06 09:08] VITALS: BP 145/68
--- NOTE | 2019-08-06 16:30 | NUR ---
Initial inpt rehab assessment: Pt lives at home with . Pt has a cane, scooter, walker. SW to provide resources/referrals for stair lift as this is not covered by insurances. SW to continue to follow to assist with safe dc planning.
--- NOTE | 2019-08-06 17:48 | NUR ---
ALERT AND ORIENTED X4. UP WITH 1 ASSIST, GAIT BELT AND WALKER. REMAINS NONWEIGHTBEARING TO LEFT LOWER LEG. DENIED NEED FOR PAIN MEDICATION TODAY. PLEASANT AND COOPERATIVE WITH STAFF. HAS HINGE BRACE ON LEFT LEG ALL DAY TODAY. USES CALL LIGHT WITHIN REACH. FALL PRECAUTIONS IN PLACE. BED AND CHAIR ALARM USED.
[2019-08-06 19:59] VITALS: BP 153/60
--- NOTE | 2019-08-07 01:47 | NUR ---
ASSUMED CARE @ 1934-08/05-FRIDAY.SITS IN RECLINER W/ LEFT LE UP & BRACE IN PLACE LEFT LE.TUBIGRIPS IN PLACE LE'S.ON HIS COMPUTER.MIN ASSIST TO BED @ 2114.SIDERAILS X2 UP.WANTS DOOR HALF CLOSED & ALL LIGHTS OFF.BED ALARM PUT ON @ 2114.NWB LEFT LE OBSERVED DURING TRANSFERS.ON HOURLY ROUNDS.CREDIT OPERATIONS PROCESSOR DOING ODD HOUR ROUNDS.
--- NOTE | 2019-08-07 05:41 | NUR ---
SLEEPING SINCE 0000 & SLEPT GOOD ALL NIGHT.USED URINAL X3.NURSE EMPTIES URINAL @ NIGHT.REFUSED HS SNACK.
[2019-08-07 08:31] VITALS: BP 130/67
--- NOTE | 2019-08-07 18:33 | NUR ---
ASSESSMENT COMPLETED DOCUMENTED THIS MORNING. PATIENT HAS BEEN UP AND PARTICIPATING IN THERAPY TODAY, PROGRESSING AND TOLERATING WELL. HAS NOT REQUESTED ANYTHING FOR PAIN DURING SHIFT.
[2019-08-07 19:50] VITALS: BP 142/63
--- NOTE | 2019-08-08 01:23 | NUR ---
ASSUMED CARE @ 1916-08/06-SAT.SITS IN RECLINER W/ LE'S UP.BRACE IN PLACE LEFT LE.TUBIGRIPS IN PLACE LE'S.NWB LEFT OBSERVED.PATIENT TOOK OFF BRACE LEFT LE WHEN IN BED.EACH LE UP ON A PILLOW.WANTS ALL LIGHTS OFF & DOOR CLOSED @ NIGHT. URINAL W/IN REACH.ON HOURLY ROUNDS.SHIPPING AND RECEIVING SPECIALIST DOING ODD HOUR ROUNDS.
--- NOTE | 2019-08-08 05:06 | NUR ---
SLEEPING @ 2310 & SLEPT GOOD ALL NIGHT.USED URINAL X4.NURSE EMPTIES URINAL @ NIGHT.REFUSED HS SNACK.
--- NOTE | 2019-08-08 18:03 | NUR ---
ASSESSMENT COMPLETED DOCUMENTED THIS MORNING. NO ISSUES OR CHANGES IN CONDITION NOTED TODAY. HAS BEEN UP IN THE RECLINER AT THE BEDSIDE AND TOLERATING WELL.
[2019-08-08 19:35] VITALS: BP 125/49
--- NOTE | 2019-08-09 01:22 | NUR ---
ASSUMED CARE @ -SUN.SITTING IN RECLINER W/ LE'S UP.WATCHING TV & ON COMPUTER @ SAME TIME.BRACE IN PLACE LEFT LE.TUBIGRIPS INTACT LE'S.BED ALARM PUT ON @ 2119.URINAL W/IN REACH.BRACE OFF @ NIGHT.WANTS ONLY SIDERAILS X2 UP,ALL LIGHTS OFF & DOOR PARTIALLY CLOSED @ NIGHT.ON HOURLY ROUNDS.INJURY/SAFETY HAZARD ASSESSMENT DOING ODD HOUR ROUNDS.
--- NOTE | 2019-08-09 05:15 | NUR ---
SLEEPING SINCE 2324 & SLEPT GOOD ALL NIGHT.USED URINAL X3.NURSE EMPTIES URINAL @ NIGHT.TOOK ALL RAINBOW SHERBET HS SNACK.
[2019-08-09 08:28] VITALS: BP 143/67
--- NOTE | 2019-08-09 18:22 | NUR ---
ALERT AND ORIENTED X4. UP WITH 1 ASSIST, GAIT BELT AND WALKER. REMAINS NONWEIGHTBEARING TO LEFT LOWER EXTREMITY. HOPS WHEN USING WALKER. BRACE ON LEFT LEG WHILE UP. DENIES NEED FOR PAIN MEDICATION. USES CALL LIGHT WHEN NEEDING ASSIST. FALL PRECAUTIONS IN PLACE, BED ALARM AND CHAIR ALARM USED.
[2019-08-09 19:15] VITALS: BP 112/59
[2019-08-09 20:30] VITALS: BP 150/64
--- NOTE | 2019-08-10 04:48 | NUR ---
ASSUMED CARES AT 1920. ALERT AND ORIENTED, PLEASANT. DENIED ANY PAIN. NWB LLE. HINGED BRACE OFF FOR THE NIGHT. TUBIGRIPS BLE. USED URINAL AND NURSING EMPTIED. SLEPT OFF AND ON. CALL LIGHT IN REACH AND BED ALARM ON.
[2019-08-10 07:58] VITALS: BP 117/63
--- NOTE | 2019-08-10 11:58 | NUR ---
SW called pt in preparation for team conference tomorrow and pt did not answer so SW left a detailed message and requested call back with any questions or comments. SW to continue to follow to assist with safe dc planning.
--- NOTE | 2019-08-10 16:35 | NUR ---
ALERT AND ORIENTED X4. UP WITH 1 ASSIST, GAIT BELT AND WALKER. DENIES NEED FOR PAIN MEDICATION. WEARS HINGED BRACE WHEN UP ON LEFT LEG. REMAINS NONWEIGHTBEARING TO LEFT LOWER LEG. HOPS WITH TRANSFERS. TUBIGRIPS HELPFUL WITH LOWER EXTREMITY EDEMA. USES CALLLIGHT WHEN NEEDING ASSIST. FALL PRECAUTIONS IN PLACE, BED ALARM AND CHAIR ALARM USED.
[2019-08-10 19:30] VITALS: BP 134/52
--- NOTE | 2019-08-11 06:53 | NUR ---
ASSUMED CARES AT 1920. ALERT AND ORIENTED. PLEASANT. DENIED ANY PAIN. NWBLLE WITH HINGED BRACE WHEN UP. MIN ASSIST WITH GAIT BELT AND WALKER. BLE TUBIGRIPS. USED URINAL. SLEPT WELL.
[2019-08-11 08:52] VITALS: BP 109/74
--- NOTE | 2019-08-11 15:33 | NUR ---
WILBER called pt Karly to review team conference summary and plan for pt to continue therapies with dc on Friday. Pt and pt requested team consider pt possibly ready to dc home on Friday. Pt agreed to family training at 1 pm on Friday. WILBER discussed with Dr Yu who is okay with plan for dc home Friday. WILBER to continue to follow to assist with safe dc planning.
--- NOTE | 2019-08-11 16:42 | NUR ---
ALERT AND ORIENTED X4. UP WITH 1 ASSIST GAIT BELT AND WALKER. USES HINGED BRACE ON LEFT LEG. REMAINS NONWEIGHTBEARING TO LEFT LEG. HAS TUBIGRIPS TO LOWER EXTREMITIES. NO C/O PAIN. USES CALL LIGHT WHEN NEEDING ASSIST. FALL PRECAUTIONS IN PLACE. BED ALARM AND CHAIR ALARM USED.
[2019-08-11 19:45] VITALS: BP 128/59
--- NOTE | 2019-08-12 01:28 | NUR ---
ASSUMED CARE @ 1932-.SITS IN RECLINER W/ BRACE ON LEFT LE.TUBIGRIPS JUAN.LE'S.ON HIS COMPUTER.CHAIR ALARM ON ALREAdy @ 1932.NWB LEFT LE OBSERVED DURING TRANSFER.BRACE OFF WHEN IN BED.HOB UP.LE'S UP ON 2 PILLOWS.URINAL W/IN REACH.ON HOURLY ROUNDS.POLICY WRITER SALES DOING ODD HOUR ROUNDS.
--- NOTE | 2019-08-12 05:25 | NUR ---
AWAKE MOST OF TIME.FOUND SLEEPING ONLY @ 0000-08/11-.USED URINAL X5.NURSE EMPTIES URINAL @ NIGHT.REFUSED HS SNACK.
[2019-08-12 07:40] VITALS: BP 138/65
--- NOTE | 2019-08-12 16:13 | NUR ---
PATIENT UP WITH ASSISTANCE, NWB LEFT LEG. WALKER AND GAIT BELT UTILIZED PER PROTOCOL. NO COMPLAINTS OF PAIN. TUBAGRIPS IN PLACE BI LE'S, SKIN CHECKED. BRACE IN PLACE TO LEFT LEG. LARGE BM NOTED THIS AM. POSSIBLE DISCHARGE TO HOME TOMORROW.
[2019-08-12 20:33] VITALS: BP 142/54
[2019-08-12 20:54] VITALS: BP 145/64
--- NOTE | 2019-08-13 02:26 | NUR ---
ASSUMED CARE @ 1919-.SITS IN RECLINER ON HIS COMPUTER.CHAIR ALARM ON ALREADY @ 1919.BRACE INTACT LEFT LE.TUBIGRIPS IN PLACE LE'S.SEE PAIN MANAGE- MENT @ 1947.BRACE OFF IN BED.BED ALARM PUT ON @ 1952.LE'S UP ON 2 PILLOWS. URINAL W/IN REACH.NWB LEFT LE OBSERVED DURING TRANSFERS.ICE PACK APPLIED TO RIGHT LOWER INNER LEG NEAR ANKLE @ 2054.ON HOURLY ROUNDS.GLUE WHEEL OPERATOR DOING ODD HOUR ROUNDS.
--- NOTE | 2019-08-13 04:53 | NUR ---
SLEPT LATE @ 0000-08/12-FRIDAY.SLEEPING GOOD AFTER 0000.TOOK ALL VANILLA ICE CREAM HS SNACK.USED URINAL X4.NURSE EMPTIES URINAL @ NIGHT.FOR DISCHARGE TODAY-08/12-FRIDAY.
[2019-08-13 08:02] VITALS: BP 139/59
[2019-08-13] MEDS ORDERED: HYDROCODON-ACE1 EAC7 PO (10:29)
[2019-08-13 11:07] VITALS: BP 139/59
[2019-08-13 14:29] VITALS: BP 139/59
--- NOTE | 2019-08-13 14:31 | NUR ---
Pt to dc home with today. Pt completed family training. Discussed HH and RW with pt and arranged walker through [facility], approved to be issued through [place] with [facility]. [facility]; SW faxed referral and orders to HH intake. pt to provide pt ride home.
--- NOTE | 2019-08-13 15:39 | NUR ---
PATIENT REFUSED TO HAVE DISCHARGE PHOTOS DONE.
--- NOTE | 2019-08-13 15:41 | NUR ---
ASSESSMENT CHARTED. VSS THIS MORNING. DISCHARGED TO HOME WITH HOME HEALTH AT 1445. DISCHARGE INSTRUCTIONS GONE OVER WITH PATIENT. SCRIPT SENT WITH.
== END 2019-08-13 14:45 | disposition home health service (06) | DRG 563 ==
LOC: M.REH 09:57
PROVIDERS: ADMIT Physical Medicine & Rehabilitation
DX: S82.142A Displaced bicondylar fracture of left tibia, initial encounter for closed fracture (principal); E87.1 Hypo-osmolality and hyponatremia; I42.6 Alcoholic cardiomyopathy; F10.231 Alcohol dependence with withdrawal delirium; I50.32 Chronic diastolic (congestive) heart failure; Y90.9 Presence of alcohol in blood, level not specified; S00.03XA Contusion of scalp, initial encounter; E78.5 Hyperlipidemia, unspecified; J44.9 Chronic obstructive pulmonary disease, unspecified; I48.91 Unspecified atrial fibrillation; E11.40 Type 2 diabetes mellitus with diabetic neuropathy, unspecified; Z79.01 Long term (current) use of anticoagulants; W18.39XA Other fall on same level, initial encounter; Y93.89 Activity, other specified; Y92.89 Other specified places as the place of occurrence of the external cause; Y99.8 Other external cause status

== ENCOUNTER 2019-11-18 08:56 | Inpatient (IN) | payer MEDICARE, OTHER ==
[~2019-11-18] VITALS: Ht 175.3 cm; Wt 88.0 kg
[~2019-11-18 08:56] MED LIST changes: +HYDROCODON-ACE1 EAC7 PO
[2019-11-18 08:57] VITALS: BP 144/67
[2019-11-18] MEDS ORDERED: AZITHROMYCIN500 MG PO (09:03)
[2019-11-18] MEDS ORDERED: FLUTICASONE PRO30 G1 TOP (09:05)
[2019-11-18] MEDS ORDERED: MOMETASONE FUROA1 GM PO (09:06)
[2019-11-18] MEDS ORDERED: DALIRESP250 MCG PO (09:06)
[2019-11-18 09:28] LABS: HEMATOCRIT 34.3 % (42.0-52.0); HEMOGLOBIN 11.6 gm/dL (14.0-18.0); MCH 29.2 pg (26.0-34.0); MCHC 33.8 g/dL (28.0-37.0); MCV 86.4 fL (80.0-100.0); MPV 7.5 fl. (7.2-11.1); NUCLEATED RBCS 0 /100WBC; PLATELET COUNT* 377 thou/uL (150-400); RBC 3.97 mil/uL (4.50-6.00); RDW-CV 14.7 % (10.5-14.5); WBC 13.4 thou/uL (4.0-11.0)
[2019-11-18 09:38] LABS: APTT 30.3 Seconds (25.0-31.3); PROTIME 10.5 Seconds (9.20-11.50)
[2019-11-18 09:50] LABS: ALBUMIN 2.9 g/dL (3.4-5.0); CALCIUM 8.4 mg/dL (8.5-10.1); POTASSIUM 4.4 mmol/L (3.5-5.1); TOTAL BILIRUBIN 0.5 mg/dL (<0.1-1.0); TOTAL PROTEIN 6.9 g/dL (6.4-8.2)
[2019-11-18 09:59] LABS: ABSOLUTE BASOPHILS 0.1 thou/uL (0.0-0.2); ABSOLUTE LYMPHOCYTES 0.5 thou/uL (0.8-5.3); ABSOLUTE MONOCYTES 0.1 thou/uL (0.0-1.2); ABSOLUTE NEUTROPHILS 12.6 thou/uL (1.6-8.1); PLATELET ESTIMATE ADEQUATE
[2019-11-18 17:25] VITALS: BP 161/67
[2019-11-18 17:30] VITALS: BP 169/77
[2019-11-18 23:00] VITALS: BP 168/77
[2019-11-19] VITALS: BP 176/79
[2019-11-19 04:00] VITALS: BP 155/79
[2019-11-19 05:15] LABS: ABSOLUTE LYMPHOCYTES 0.6 thou/uL (0.8-5.3); ABSOLUTE MONOCYTES 0.4 thou/uL (0.0-1.2); ABSOLUTE NEUTROPHILS 17.5 thou/uL (1.6-8.1); BASOPHILS 0.1 %; HEMATOCRIT 34.1 % (42.0-52.0); HEMOGLOBIN 11.1 gm/dL (14.0-18.0); LYMPHOCYTES 3.3 %; MCH 28.5 pg (26.0-34.0); MCHC 32.6 g/dL (28.0-37.0); MCV 87.4 fL (80.0-100.0); MONOCYTES 2.4 %; NUCLEATED RBCS 0 /100WBC; PLATELET COUNT* 353 thou/uL (150-400); POLYS 94.2 %; RBC 3.91 mil/uL (4.50-6.00); WBC 18.6 thou/uL (4.0-11.0)
[2019-11-19 05:28] LABS: CALCIUM 8.7 mg/dL (8.5-10.1); CREATININE 1.3 mg/dL (0.6-1.3); POTASSIUM 3.5 mmol/L (3.5-5.1)
[2019-11-19 08:47] VITALS: BP 167/81
--- NOTE | 2019-11-19 10:26 | EKG ---
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
[2019-11-19 12:46] VITALS: BP 158/78
[2019-11-19 18:16] VITALS: BP 151/74
[2019-11-19 20:20] VITALS: BP 148/72
[2019-11-20 00:30] VITALS: BP 150/74
[2019-11-20 03:40] VITALS: BP 122/63
[2019-11-20 07:35] VITALS: BP 162/73
[2019-11-20 11:41] LABS: ABSOLUTE LYMPHOCYTES 0.3 thou/uL (0.8-5.3); ABSOLUTE MONOCYTES 0.5 thou/uL (0.0-1.2); ABSOLUTE NEUTROPHILS 12.8 thou/uL (1.6-8.1); BASOPHILS 0.1 %; HEMATOCRIT 31.1 % (42.0-52.0); HEMOGLOBIN 10.2 gm/dL (14.0-18.0); MCH 28.4 pg (26.0-34.0); MCHC 32.8 g/dL (28.0-37.0); MCV 86.7 fL (80.0-100.0); MONOCYTES 3.7 %; MPV 7.7 fl. (7.2-11.1); NUCLEATED RBCS 0 /100WBC; PLATELET COUNT* 360 thou/uL (150-400); POLYS 94.2 %; RBC 3.59 mil/uL (4.50-6.00); RDW-CV 15.2 % (10.5-14.5); WBC 13.6 thou/uL (4.0-11.0)
[2019-11-20 11:58] LABS: ALBUMIN 2.4 g/dL (3.4-5.0); CALCIUM 8.3 mg/dL (8.5-10.1); CREATININE 1.2 mg/dL (0.6-1.3); POTASSIUM 3.3 mmol/L (3.5-5.1); TOTAL BILIRUBIN 0.3 mg/dL (<0.1-1.0); TOTAL PROTEIN 6.5 g/dL (6.4-8.2)
[2019-11-20 12:00] VITALS: BP 144/68
[2019-11-20] MEDS ORDERED: AUGMENTIN 875-1 EACH PO (12:32)
[2019-11-20] MEDS ORDERED: PREDNISONE 10 M10 MG PO (12:35)
[2019-11-20] MEDS ORDERED: PROTONIX40 M1 PO (12:35)
[2019-11-20 13:41] VITALS: BP 144/68
== END 2019-11-20 14:04 | disposition home or self-care (01) | DRG 177 ==
LOC: M.ERS 08:56 → M.2W 10:40 → M.TBA-ER 10:40 → M.2W 18:02
PROVIDERS: Family Medicine; ADMIT Internal Medicine; ATTEND Internal Medicine
DX: J69.0 Pneumonitis due to inhalation of food and vomit (principal); J96.01 Acute respiratory failure with hypoxia; E87.1 Hypo-osmolality and hyponatremia; R65.10 Systemic inflammatory response syndrome (SIRS) of non-infectious origin without acute organ dysfunction; J44.1 Chronic obstructive pulmonary disease with (acute) exacerbation; I16.0 Hypertensive urgency; D72.829 Elevated white blood cell count, unspecified; I48.91 Unspecified atrial fibrillation; E78.5 Hyperlipidemia, unspecified; E11.9 Type 2 diabetes mellitus without complications; Y90.9 Presence of alcohol in blood, level not specified; Z20.828 Contact with and (suspected) exposure to other viral communicable diseases; Z87.891 Personal history of nicotine dependence; Z79.82 Long term (current) use of aspirin; Z79.899 Other long term (current) drug therapy; Z79.84 Long term (current) use of oral hypoglycemic drugs; Z79.01 Long term (current) use of anticoagulants; F10.21 Alcohol dependence, in remission

== ENCOUNTER 2020-09-27 10:44 | Emergency (ER) | payer OTHER, MEDICARE ==
[~2020-09-27] VITALS: Ht 175.3 cm; Wt 92.3 kg
[~2020-09-27 10:44] MED LIST changes: +AZITHROMYCIN500 MG PO; +DALIRESP250 MCG PO; +FLUTICASONE PRO30 G1 TOP; +MOMETASONE FUROA1 GM PO; +PREDNISONE 10 M10 MG PO; +PROTONIX40 M1 PO
[2020-09-27 11:22] LABS: ABSOLUTE BASOPHILS 0.3 thou/uL (0.0-0.2); ABSOLUTE EOSINOPHILS 0.3 thou/uL (0.0-0.7); ABSOLUTE LYMPHOCYTES 2.1 thou/uL (0.8-5.3); ABSOLUTE MONOCYTES 1.1 thou/uL (0.0-1.2); ABSOLUTE NEUTROPHILS 11.4 thou/uL (1.6-8.1); BASOPHILS 1.7 %; EOSINOPHILS 1.9 %; HEMATOCRIT 26.4 % (42.0-52.0); HEMOGLOBIN 8.6 gm/dL (14.0-18.0); LYMPHOCYTES 13.7 %; MCH 26.5 pg (26.0-34.0); MCHC 32.6 g/dL (28.0-37.0); MCV 81.3 fL (80.0-100.0); MONOCYTES 7.1 %; MPV 7.3 fl. (7.2-11.1); NUCLEATED RBCS 0 /100WBC; PLATELET COUNT* 552 thou/uL (150-400); POLYS 75.6 %; RBC 3.25 mil/uL (4.50-6.00); RDW-CV 17.8 % (10.5-14.5); WBC 15.1 thou/uL (4.0-11.0)
[2020-09-27 11:31] LABS: CALCIUM 8.7 mg/dL (8.5-10.1); POTASSIUM 4.1 mmol/L (3.5-5.1)
[2020-09-27] MEDS ORDERED: DULCOLAX STOOL100 M1 PO (11:39)
[2020-09-27] MEDS ORDERED: VITAMIN B-121000 MC2 SUBLING (11:39)
[2020-09-27] MEDS ORDERED: IMDUR 30 MG TAB30 M1 PO (11:40)
[2020-09-27 11:41] LABS: ALBUMIN 2.2 g/dL (3.4-5.0); TOTAL BILIRUBIN 0.5 mg/dL (<0.1-1.0); TOTAL PROTEIN 6.8 g/dL (6.4-8.2)
[2020-09-27] MEDS ORDERED: TOPROL XL25 MG PO (11:41)
[2020-09-27] MEDS ORDERED: BAZA CR.1 E1 TOP (11:41)
[2020-09-27] MEDS ORDERED: SUPER THERAVIT1 EACH PO (11:42)
[2020-09-27] MEDS ORDERED: OXYCODONE PO (11:42)
[2020-09-27] MEDS ORDERED: SPIRONOLACTONE25 MG PO (11:43)
[2020-09-27] MEDS ORDERED: PREGABALIN75 MG PO (11:43)
[2020-09-27] MEDS ORDERED: VITAMIN B-1100 M2 PO (11:44)
[2020-09-27 13:32] VITALS: BP 93/48
--- NOTE | 2020-09-28 11:35 | EKG ---
[place] [address] ELECTROCARDIOGRAM REPORT Name: DAREN LEVIN Room: [facility]#: [id number] Admission: 09/27/20 Attend Phys: Discharge: 09/27/20 Date of : 46 Date of Service: 09/27/20 1049 Report #: [id number] THIS REPORT FOR: //name// [facility] ED Test Date: 2020-09-27 Test Time: 10:49:19 Pat Name: DAREN LEVIN Department: Room: Gender: Medical Director/Head Team Physician: : 1950 Requested By: Gio Murcia Order Number: [id number] MD: Lino Yuan Measurements Intervals [place] Rate: 71 P: 41 DE: 165 QRS: 33 QRSD: 72 T: 46 QT: 445 QTc: 484 Interpretive Statements Sinus rhythm Atrial premature complexes in couplets Baseline wander in lead(s) V3 Compared to ECG 11/18/2019 09:01:27 Atrial premature complex(es) now present Sinus tachycardia no longer present Electronically Signed On 09-28-2020 11:35:39 CDT by Lino Yuan [email or web address] <ELECTRONICALLY SIGNED> By: Lino Yuan MD, [facility] 09/28/20 1135 1049 1049 Lino Yuan MD, [facility] /EPI
== END 2020-09-27 13:33 | disposition home or self-care (01) ==
LOC: M.ERS 10:44
PROVIDERS: Family Medicine
DX: I95.9 Hypotension, unspecified (principal); R55 Syncope and collapse; I48.91 Unspecified atrial fibrillation; J44.9 Chronic obstructive pulmonary disease, unspecified; E78.5 Hyperlipidemia, unspecified; E11.9 Type 2 diabetes mellitus without complications; I10 Essential (primary) hypertension

== ENCOUNTER 2020-10-06 15:14 | Inpatient (IN) | payer OTHER, MEDICARE ==
[~2020-10-06] VITALS: Ht 175.3 cm; Wt 96.2 kg
[~2020-10-06 15:14] MED LIST changes: +BAZA CR.1 E1 TOP; +DULCOLAX STOOL100 M1 PO; +IMDUR 30 MG TAB30 M1 PO; +OXYCODONE PO; +PREGABALIN75 MG PO; +SPIRONOLACTONE25 MG PO; +SUPER THERAVIT1 EACH PO; +TOPROL XL25 MG PO; +VITAMIN B-1100 M2 PO; +VITAMIN B-121000 MC2 SUBLING
[2020-10-06 15:15] VITALS: BP 117/71
[2020-10-06 15:35] LABS: ABSOLUTE EOSINOPHILS 0.1 thou/uL (0.0-0.7); ABSOLUTE LYMPHOCYTES 1.8 thou/uL (0.8-5.3); ABSOLUTE MONOCYTES 0.9 thou/uL (0.0-1.2); ABSOLUTE NEUTROPHILS 7.2 thou/uL (1.6-8.1); BASOPHILS 0.2 %; EOSINOPHILS 1.1 %; HEMATOCRIT 25.8 % (42.0-52.0); HEMOGLOBIN 8.7 gm/dL (14.0-18.0); LYMPHOCYTES 17.6 %; MCH 27.8 pg (26.0-34.0); MCHC 33.7 g/dL (28.0-37.0); MCV 82.5 fL (80.0-100.0); MONOCYTES 8.9 %; MPV 7.2 fl. (7.2-11.1); NUCLEATED RBCS 0 /100WBC; PLATELET COUNT* 332 thou/uL (150-400); POLYS 72.2 %; RBC 3.13 mil/uL (4.50-6.00); RDW-CV 19.3 % (10.5-14.5)
[2020-10-06 15:44] LABS: CALCIUM 8.2 mg/dL (8.5-10.1); CREATININE 1.3 mg/dL (0.6-1.3); POTASSIUM 4.5 mmol/L (3.5-5.1)
[2020-10-06 15:58] LABS: ALBUMIN 2.2 g/dL (3.4-5.0); CK-MB MASS 0.9 ng/mL (<0.5-3.6); MAGNESIUM 1.2 mg/dL (1.8-2.4); TOTAL BILIRUBIN 0.4 mg/dL (<0.1-1.0); TOTAL PROTEIN 6.1 g/dL (6.4-8.2)
[2020-10-06 19:54] VITALS: BP 124/76
--- NOTE | 2020-10-06 21:10 | NUR ---
PATIENT VERY UPSET THAT HE IS NOT GOING TO THE FLOOR. SPOKE TO PATIENT, AND REQUESTS THAT HE WANTS A ROOM. HE STATES THAT HE WOULD LIKE HIS BREATHING TREATMENT, AND A ROOM. SPOKE TO RADIATOR SPECIALIST TO COME TALK TO PATIENT. REASSURED PATIENT THAT WE ARE WORKING TOGETHER TO GET THE PATIENT A ROOM. SPOKE TO DR LAW REGARDING INCREASING HEART RATE. SHE REQUESTS STARTED OF CARDIZEM DRIP, WITH TITRATION, AND BREATHING TREATMENTS SCHEDULED.
[2020-10-06 21:33] VITALS: BP 121/54
[2020-10-06 22:00] VITALS: BP 125/63
[2020-10-07 00:09] VITALS: BP 139/59
--- NOTE | 2020-10-07 03:15 | NUR ---
PT TO FLOOR APPROX 2200 FROM ED. PT HAS HX OF BREAKING LLE X2 AND HAVING SURG ON BOTH HIS KNEE AND HIP IN PAST YEAR. HE ADMITS TO FREQUENT FALLS. HE IN NON WT BEARING ON LT FOOT AND USES A POWER CHAIR AT HOME TO GET AROUND, ED RECOMMENDED HIM BE A 2 ASSIST TO GET UP. PT RECENTLY RAN HIS POWER CHAIR INTO SOMETHING AT HOME THAT RIPPED HIS TOENAIL OFF THE LT SECOND TOE NAIL. PT HAS CHRONIC WOUNDS TO LLE, FOOT AND HEEL THAT ARE CURRENTLY BEING TREATED BY WOUND CARE. BANDAGES WERE REMOVED AND PHOTOS TAKEN FOR CHART. PT HAS EDEMA 2-3+ BLE. HE ALSO HAS A STAGE 2 WOUND ON RT BUTTOCK THAT WAS ALSO DOCUMENTED BY PHOTO. PT STATES HE HAS PAIN IN LT KNEE BUT DOESNT HAVE MUCH FEELING IN EITHER FOOT. PT HAS CARDIZEM GTT RUNNING AT 10Ml/HR WITH HEART RATE IN 80-90s. BED ALARM ON FOR SAFETY, CALL LIGHT WITHIN REACH.
[2020-10-07 04:25] VITALS: BP 139/58
[2020-10-07 06:59] LABS: HEMATOCRIT 23.5 % (42.0-52.0); HEMOGLOBIN 7.9 gm/dL (14.0-18.0); MCH 27.1 pg (26.0-34.0); MCHC 33.5 g/dL (28.0-37.0); MCV 81.1 fL (80.0-100.0); RBC 2.9 mil/uL (4.50-6.00); RDW-CV 19.3 % (10.5-14.5); WBC 6.7 thou/uL (4.0-11.0)
[2020-10-07 07:07] LABS: CALCIUM 8.3 mg/dL (8.5-10.1); CREATININE 1.2 mg/dL (0.6-1.3); POTASSIUM 3.8 mmol/L (3.5-5.1)
[2020-10-07 08:23] VITALS: BP 134/59
[2020-10-07] MEDS ORDERED: PACERONE 200 M200 M1 PO (09:32)
--- NOTE | 2020-10-07 10:57 | EKG ---
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 : 1950 Requested By: Gio Murcia Order Number: [id number] MD: Scottie Luis Measurements Intervals [place] Rate: 160 P: 0 OK: 105 QRS: -10 QRSD: 74 T: 59 QT: 274 QTc: 447 Interpretive Statements Probable sinus tachycardia Low voltage, extremity and precordial leads possible anteroseptal infarct, old Compared to ECG 09/27/2020 10:49:19 Low QRS voltage now present Myocardial infarct finding now possible Sinus rate has increased Atrial premature complex(es) no longer present Electronically Signed On 10-07-2020 10:57:43 CDT by Scottie Luis [email or web address] <ELECTRONICALLY SIGNED> By: Scottie Luis MD, [facility] 10/07/20 1057 1523 1523 Scottie Luis MD, [facility] /EPI
[2020-10-07 12:00] VITALS: BP 123/52
[2020-10-07 14:28] VITALS: BP 123/52
--- NOTE | 2020-10-07 16:00 | NUR ---
ORDERS NOTED ONCE PT RECIEVED PO AMIO AND METOPROLO, TO D/C IV CARDIZEM- ORDERDS COMPLETED AND CARRIED OUT- ORAL MEDICATIONS GIVEN AROUND 1000 AND CARDIZEM D/C'D- OK TO D/C THIS SHIFT POST 4 HOURS AFTER PO MEDICATIONS GIVEN NOTED PER THIS SHIFT TO MONITOR HR- HR STABLE OF 1600- D/C EDUCATION/TEACHING/NEEDED FOLLOW UP'S COMMUNICATED WITH VERBAL UNDERSTIANG NOTED PT PT AND - WRITTEN EDUCATION PROVIDED TO PT PRIOR TO D/C WITH AL QUESTIONS AND CONCERNS ADDRESED- DRESSING TO LLE IN PLACE AND C/D/I AT TIME OF D/C- PT REFUSED TO DRESSING CHANGE AT TIME OF D/C AND STATES NURSE WITH COME TO HOME AND DO DRESSING CHANGES ARTURO AND HAS FOLLOW UP WITH PHYSICAIN OUT PT-IV TO TO RIGHT AC AND LEFT WRIST D/C'D PRIOR TO D/C ALONG WITH CARTOON ARTIST- BELONGINGS PACKED AND ACCOUNTED FOR PER - PT ESCORTED PER [facility] VIA W/C WITH BELONGINGS TO VEHICLE AT 1605 FOR D/C- NO PROBLEMS TO NOTE AT TIME OF D/C
--- NOTE | 2020-10-09 14:53 | EKG ---
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
== END 2020-10-07 16:08 | disposition home or self-care (01) | DRG 308 ==
LOC: M.ERS 15:14 → M.TBA-ER 17:04 → M.2W 21:25
PROVIDERS: Family Medicine; ADMIT Internal Medicine; ATTEND Internal Medicine
DX: I48.20 Chronic atrial fibrillation, unspecified (principal); I50.33 Acute on chronic diastolic (congestive) heart failure; I11.0 Hypertensive heart disease with heart failure; J44.9 Chronic obstructive pulmonary disease, unspecified; F10.11 Alcohol abuse, in remission; E78.5 Hyperlipidemia, unspecified; D64.9 Anemia, unspecified; E83.42 Hypomagnesemia; E11.9 Type 2 diabetes mellitus without complications; Z20.822 Contact with and (suspected) exposure to COVID-19; Z79.899 Other long term (current) drug therapy; Z79.01 Long term (current) use of anticoagulants; Z79.82 Long term (current) use of aspirin